=== PATIENT | female | born 1940 | race Caucasian/White ===

== ENCOUNTER → 2016-04-26 | Outpatient (CLI) | payer MEDICARE ==
[~2016-04-26] MED LIST: ALBUTEROL MININEB; ALBUTEROL0.83 MG/ML IH; ALBUTEROL17 GM INH; DIOVAN160 MG PO; FLEXERIL10 MG PO; HUMULIN R100 U/ML SUBQ; IMDUR30 MG PO; LANTUS100 U/ML INJ; LASIX PO; MICRO-K10 MEQ PO; NORVASC PO; ORUDIS75 M1 PO; PRAVASTATIN SOD40 MG PO; PREDNISONE10 MG PO; PULMICORT NEB; SINGULAIR PO; TOPROL XL PO; VITAMIN E15 U/0.3 M PO; ZANAFLEX2 MG PO; ZANTAC150 MG PO
--- NOTE | ~2016-04-26 | US128 ---
[id number] [address] [address] [id number] O MR#: [id number] Acc #: [id number] NAME: FRANK LIM : 1940 SEX: F STUDY DATE/TIME: 04/26/2016 10:34 UNIT: [facility] ROOM: STUDY DESCRIPTION: Thyroid Attending Physician: John Arzate Jr., M.D. Ordering Physician: John Arzate Jr., M.D. Primary Care Physician: John Arzate Jr., M.D. MEDICAL IMAGING REPORT This report is preliminary unless electronic signature is present. EXAM Ultrasound of the thyroid gland INDICATIONS Thyroid nodules; this is a followup study. Patient had a thyroid ultrasound in August [address] TECHNIQUE Izquierdo-scale and color Doppler sonographic images were obtained through the thyroid gland. FINDINGS Thyroid gland is mildly enlarged, right lobe measures 4.4 x 1.6 x 1.9 cm, left lobe measures 5.2 x 1.2 x 2 cm. Isthmus measures about 3 mm in thickness. As was identified on prior examination, innumerable hypoechoic nodules are seen throughout the thyroid gland. I think their appearance is most in keeping with cysts and I suspect that they are not significantly changed when compared to the prior ultrasound from September 22, 2015 when allowance is made for differences in technique. No new nodules are seen. IMPRESSION This patient has bilateral thyroid nodules. I suspect that these reflect cysts. I really do not think that they have significantly changed when compared to the prior exam from August 2015. Followup ultrasound in 1 year can be considered to document continuing stability. Dictated by... Vida Edouard M.D. THIS IS AN ELECTRONICALLY VERIFIED REPORT Vida Edouard M.D. at 04/27/2016 4:45 PM AFF/psc TD: 04/27/2016 00:20 JOB #: [id number] MEDICAL IMAGING REPORT
== END | disposition home or self-care (01) ==
LOC: SGUS 10:19
DX: E04.1 Nontoxic single thyroid nodule (principal); E04.2 Nontoxic multinodular goiter
CPT/HCPCS: 76536